=== PATIENT | male | born 1955 | race Hispanic/Latino ===

== ENCOUNTER 2016-06-27 06:14 | Inpatient (IN) | payer OTHER ==
--- NOTE | 2016-06-25 12:47 | Anesthesia Consultation ---
Anesthesia Consult and Med Hx Date of service: 06/25/16 - Airway Anesthetic Teeth Evaluation: Crowns (on lower left) ROM Head & Neck: Adequate Mental/Hyoid Distance: Inadequate Mallampati Class: Class III Intubation Access Assessment: Possibly Difficult (Appeared anterior - may be difficult) - Pulmonary Exam CTA: Yes - Cardiac Exam Cardiac Exam: RRR - Pre-Operative Health Status ASA Pre-Surgery Classification: ASA2 Proposed Anesthetic Plan: Epidural, None (discussed CSE, adductor block and sedation with possibility of GA. Had anesthesia with tonsilectiomy - no problems ) - Pulmonary Hx Smoking: No Hx Sleep Apnea: No (ANGEI PRE SCREEN HIGH RISK.) - Cardiovascular System Hx Hypertension: No - Central Nervous System Hx Neuromuscular Disorder: Yes (patient indicates needs partial knee replacement ) - Gastrointestinal Hx Gastroesophageal Reflux Disease: Yes - Other Systems Hx Cancer: No
[2016-06-25 13:08] LABS: Basophils % (Auto) 0.5 % (0.0-1.8); Eosinophils % (Auto) 1.7 % (0.0-4.3); Hematocrit 40.3 % (35.5-45.6); Hemoglobin 13.4 gm/dl (11.8-15.2); Mean Corpuscular HGB Conc 33 % (32-34); Mean Corpuscular Hemoglobin 30 pg (28-32); Mean Corpuscular Volume 90 fl (84-94); Platelet Count 202 K/mm3 (140-440); Red Blood Count 4.46 M/mm3 (3.65-5.03); Red Cell Distribution Width 13.6 % (13.2-15.2); White Blood Count 6.9 K/mm3 (4.5-11.0)
[2016-06-25 13:19] LABS: INR 0.97 (0.87-1.13); Partial Thromboplastin Time 26.6 Sec. (24.2-36.6)
[2016-06-25 13:31] LABS: Alanine Aminotransferase 22 units/L (7-56); Albumin 4.2 g/dL (3.9-5); Albumin/Globulin Ratio 1.6 %; Alkaline Phosphatase 65 units/L (35-129); Bilirubin,Total 0.2 mg/dL (0.1-1.2); Blood Urea Nitrogen 14 mg/dL (9-20); Calcium 9.2 mg/dL (8.4-10.2); Carbon Dioxide 26 mmol/L (22-30); Chloride 102.5 mmol/L (98-107); Glucose 95 mg/dL (75-100); Potassium 4.4 mmol/L (3.6-5.0); Sodium 140 mmol/L (137-145); Total Protein 6.9 g/dL (6.3-8.2)
[2016-06-25 13:32] LABS: Anion Gap 16 mmol/L
[~2016-06-27 06:14] MED LIST: LACTATED RINGERS 1,000 ML IV SCH; PEPCID IV NR; VERSED IV NR
[2016-06-27] MEDS ORDERED: DIPRIVAN 10 MG/ML IV ONE (07:42)
[2016-06-27] MEDS ORDERED: MARCAINE-EPI 0.5%-1:200,000 INFILTRATI ONE ×3 (07:43→10:13)
[2016-06-27] MEDS ORDERED: DECADRON ONE ×2 (07:43→11:02)
[2016-06-27] MEDS ORDERED: XYLOCAINE MPF 2% ONE ×2 (07:47)
--- NOTE | 2016-06-27 07:58 | Anesthesia Day of Surgery ---
Anesthesia Day of Surgery - Day of Surgery Patient Examined: Yes Patient H&P Reviewed: Yes Patient is NPO: Yes
[2016-06-27] MEDS ORDERED: TRANEXAMIC ACID 1,000 MG in NACL 0.9% 100 ML IV NR (08:00)
[2016-06-27] MEDS ORDERED: NEURONTIN PO NR (08:00)
[2016-06-27] MEDS ORDERED: DILAUDID ONE ×2 (08:10→10:12)
[2016-06-27] MEDS ORDERED: ANCEF/STERILE WATER 2 GM/20 ML IV NR (09:00)
[2016-06-27] MEDS ORDERED: DILAUDID IV PRN (09:03)
[2016-06-27] MEDS ORDERED: PERCOCET 5/325 PO PRN (09:03)
[2016-06-27] MEDS ORDERED: NEOSPORIN GU IR ONE (09:31)
[2016-06-27] MEDS ORDERED: TRANEXAMIC ACID IV ONE (09:41)
[2016-06-27] MEDS ORDERED: NACL 0.9% IR ONE ×2 (10:13)
[2016-06-27] MEDS ORDERED: ZOFRAN ONE (11:02)
[2016-06-27] MEDS ORDERED: SUBLIMAZE ONE (11:41)
--- NOTE | 2016-06-27 13:33 | Operative Report ---
PREOPERATIVE DIAGNOSES: Right knee severe degenerative joint disease, medial compartment collapse with marked arthrofibrosis, and obesity. POSTOPERATIVE DIAGNOSES: Right knee severe degenerative joint disease, medial compartment collapse with marked arthrofibrosis, and obesity. PROCEDURE PERFORMED: Right knee unicompartmental arthroplasty -- increased complexity with scarring and obesity, utilizing Biomet Graham system with size large cemented femur, size D cemented tibia, 3 mm polyethylene insert. SURGEON: Jose Singleton MD LOOPER OPERATOR: Wilfrido Pepper CSA. ANESTHESIA: General. ESTIMATED BLOOD LOSS: Minimal. COMPLICATIONS: None. DESCRIPTION OF PROCEDURE: The patient underwent induction of the anesthesia along with adductor single shot block. Lower extremity was meticulously prepped and draped in usual fashion after being positioned in a leg michaud, exsanguinated, tourniquet inflated. Antibiotics were preadministered as was tranexamic acid. Local anesthesia was infiltrated as well. Standard incision was made extending from the superior pole of the tibial tubercle with an arthrotomy made correspondingly. Significant scarring was noted in the joint with a very tight joint. Examination demonstrated a pristine lateral compartment, well preserved ACL and well preserved patellofemoral joint. The medial compartment demonstrated marked collapse and scarring. This was meticulously released. Standard technique was then utilized with alignments, triplanar to make the tibial cut with an extramedullary guide. Excellent cuts were made. The femur was made utilizing the guide after intramedullary heaven placed. Excellent cuts made on the posterior femur. All the soft menisci resected. The gaps balanced with Spigot reamers. He had an excellent sizing for a 3, slightly tight for 4. Wounds once again irrigated, all osteophytes removed, anterior reaming performed. The keel was then appropriately prepared and the components cemented into place. He had full range of motion, excellent stability, flexion, extension, excellent fit. The size 3 mm felt to be tight with a 4, three was selected, again excellent tracking noted. Wounds once again irrigated. All the excess cement removed. The arthrotomy reapproximated with interrupted Ethibond sutures, followed by 0 Vicryl, 2-0 Vicryl, subcutaneous tissue, Monocryl for the skin. Tourniquet was released prior to wound closure. No significant bleeding encountered. He was taken to recovery room in satisfactory condition having tolerated the procedure well after placement of an island dressing. JOB# [id number] RDP/NTS
--- NOTE | 2016-06-27 13:59 | Admit Criteria Form ---
Admission Criteria Documentation: AMBULATORY SURGERY EXCEPTION CRITERIA Ambulatory Surgery Exception Criteria ( Place 'X' for any and all applicable criteria): Surgery or procedure performed on ambulatory basis may require inpatient stay for[A] ANY ONE of the following(1)(2)(3)(4)(5)(6)(7)(8)(9): [X] I. A preoperative situation, condition, or finding that warrants inpatient stay as indicated by ANY ONE of the following: [X] a) Inpatient care needed because of severity of a disease or condition rather than the surgery (eg, severe cardiac or respiratory disease, severe infection) (15) (16 ) (17) (18) [] b) Emergent procedure (eg, angioplasty for acute ischemia)(19) [] c) Complex surgical approach or situation as indicated by ANY ONE of the following(3): [] i) Open approach needed instead of usual endoscopic, transcatheter, or other less invasive procedure [] ii) Difficult approach because of previous operation [] iii) Airway monitoring required after open neck procedures(20)(21) [] iv) Large mass requiring unusually extensive dissection [] v) Additional complicating feature requiring inpatient care (eg, drain management)(22(23): [] d) Major surgery in a pt with high anesthetic risk as indicated by ANY ONE of the following (2)(3)(5)(7)(8): [] i) ASA risk class III or higher (severe systemic disease impairing function) [D] [] ii) Advanced age (eg, older than 85 years)(14)(24) [] iii) Symptomatic heart failure(25) [] iv) Symptomatic asthma or COPD(8)(21) [] v) Morbid obesity with hemodynamic or respiratory problems(20)( 21)(26)(27) [] vi) Obstructive sleep apnea(20)(21) [] vii) Former premature infants who are younger than 60 weeks [] viii) High risk for severe postoperative abnormalities (eg, severe postoperative hypocalcemia after parathyroidectomy for severe hyperparathyroidism)(27)( 28) [] ix) Unstable angina(25) [] e) Drug-related risk requiring inpatient stay as indicated by ANY ONE of the following(5)(10)(14)(32)(33) [] i) Procedure requires discontinuing drugs or other therapy (eg , antiarrhythmic medication, antiseizure medication), which necessitates inpatient observation or treatment.(18)(31) [] ii) Major surgery and high risk drug use as indicated by ANY ONE of the following: [] 1) Active abuse of cocaine or similar drug [] 2) Monoamine oxidase inhibitor use [] 3) Other drug identified as posing risk [] f) Inadequate outpatient care situation as indicated by ANY ONE of the following(5)(10)(14)(32)(33) [] i) Patient lives remote from medical facility and procedure has urgent complication potential, and temporary nearby residence cannot be arranged [] ii) Patient will have postprocedure incapacitation and inadequate assistance at home, or alternative level of care cannot be arranged. [] iii) Patient will have long general anesthesia or procedure side effect resolution time, and competent person to stay with patient on first postoperative night at home or alternative level of care cannot be arranged. []iv) Other inadequate outpatient situation that cannot be handled by other means [] II. A perioperative event, condition, or finding that warrants inpatient stay as indicated by ANY ONE of the following (1)(2)(3): [] a) Inadequate physiologic recovery: cardiovascular, respiratory, or hemodynamic status not normal or near preoperative baseline(18) [] b) Hemodynamic instability [] c) Patient not alert with near normal or baseline mental status [] d) Temperature not normal or as expected and not appropriate for outpatient treatment of condition [] e) Ambulatory or appropriate activity level status not yet achieved post procedure [E](34)(35)(36) [] f) Operative site not appropriate (eg, unexpected or excessive drainage or bleeding) [] g) Postoperative effects not resolved or adequately managed (eg, significant pain or vomiting not appropriate for outpatient or next level of care)(10)(12) [] h) Complicating features requiring inpatient care as indicated by ANY ONE of the following(37): [] i) Severe complications of procedure (eg, bowel injury, airway compromise, vascular injury,severe hemorrhage) [] ii) Extensive (eg, dissection far beyond usual scope of procedure ) or prolonged (eg, 120 minutes beyond usual) surgery needed requiring inpatient postoperative care [] iii) Conversion to an open or complex procedure that requires inpatient care (eg, open vs laparoscopic cholecystectomy, abdominal vs vaginal hysterectomy)(38) [] iv) Comorbid condition or test result identified during or post procedure that requires inpatient care (7) [] v) Malignant hyperthermia(30) [] vi) Other complicating feature requiring inpatient care(22)(23) Inpatient stay may be needed until ALL of the following are present (1)(2)(3)(4) (5)(6)(10)(14)(33)(40): []a) Physiologic recovery: cardiovascular, respiratory, and hemodynamic status normal or near preoperative baseline []b) Hemodynamic stability []c) Patient alert, with near normal or baseline mental status []d) Temperature appropriate: patient afebrile or temperature appropriate for outpt treatment of condition []e) Activity level appropriate: ambulatory or appropriate activity level post procedure []f) Operative site appropriate as indicated by ALL of the following: []i) Site dry or with expected drainage []ii) Any blood noted is as expected for procedure. []g) Postoperative effects resolved or managed as indicated by ALL of the following: []i) Pain management appropriate for outpatient (or next level of) care(10) []ii) Minimal nausea and vomiting: if present, successfully treated with oral medication(12) []iii) Headache, dizziness, or drowsiness (if present) are mild. []h) Voiding status acceptable as indicated by ANY ONE of the following: []i) Voiding spontaneously []ii) No voiding but instructions given for follow-up in 6 to 8 hours []iii) Urinary catheter in place, and instructions given for follow-up []i) Complicating features requiring inpatient care manageable at a lower level of care(37) []j) Comorbid conditions manageable at a lower level of care(37) The original [employer] content created by [employer] has been revised. The portions of the content which have been revised are identified through the use of italic text or in bold, and [employer] has neither reviewed nor approved the modified material. All other unmodified content is copyright [employer]. Please see references footnoted in the original [employer] edition 2016 Admission Criteria Met: Yes
[2016-06-27] MEDS ORDERED: ANCEF/NS 1 GM/50 ML 50 ML IV ONE (14:52)
[2016-06-27 16:14] VITALS: BP 126/74
== END 2016-06-27 16:40 | disposition home or self-care (01) | DRG 470 ==
LOC: 3A 06:14
PROVIDERS: ADMIT Orthopaedic Surgery; ATTEND Orthopaedic Surgery
PROC: 0SRC0L9 Replacement of Right Knee Joint with Medial Unicondylar Synthetic Substitute, Cemented, Open Approach (ICD-10-PCS; principal; 2016-06-27)
DX: M17.11 Unilateral primary osteoarthritis, right knee (principal); M24.661 Ankylosis, right knee; E66.9 Obesity, unspecified; K21.9 Gastro-esophageal reflux disease without esophagitis; M25.461 Effusion, right knee; Z98.890 Other specified postprocedural states; Z68.32 Body mass index [BMI] 32.0-32.9, adult
CPT/HCPCS: 36415; 64450; 80053; 85025; 85610; 85730; 88304; 88305; 88311; A4217; C1776; J0690; J1100; J1170; J2250; J2405; J2704; J3010; J7120